=== PATIENT | female | born 1985 ===

== ENCOUNTER 2025-01-10 20:17 | Emergency (ER) | payer OTHER, SELFPAY ==
[2025-01-10 20:27] VITALS: BP 103/72
--- NOTE | 2025-01-10 21:01 | ED.GENMED ---
History of Present Illness
General
Chief Complaint: Abdominal Pain
Source: patient
Exam Limitations: none
Time Seen by Provider: 01/10/25 20:56
History of Present Illness
History of Present Illness:
See MDM
Past History
Past History
ED Past Medical History: None
ED Past Surgical History: Gynecological
Social History
Tobacco: Non-smoker
Alcohol: None
Phy Exam
Physical Exam
Physical Exam:
See MDM
Course
Orders/Labs/Results
Orders:
Orders
01/10/25 20:50
IV Insert/Care/Rem.- Treatment PRN
01/10/25 21:00
0.9% Sodium Chloride 1000 ml [Nss] 1,000 ml IV BOLUS
Ketorolac [Toradol] 30 mg IV NOW STA
Ondansetron Injectable [Zofran] 4 mg IV NOW STA
Test Result ONCE
01/10/25 21:01
CT Abd/pelvis W Iv Cont Urgent
Comment:
Reason For Exam: generalized abd pain
01/10/25 21:06
Complete Blood Count/With Diff Urgent
01/10/25 21:07
Comprehensive Metabolic Panel Urgent
HCG, Serum Qualitative Screen Urgent
Lipase Urgent
01/10/25 21:35
Morphine Sulfate 4 mg IV NOW STA
01/10/25 22:25
Urinalysis Reflex To Culture Urgent
Date Specimen was Collected: 01/10/25
Time Specimen was Collected: 22:24
01/10/25 22:58
Dicyclomine [Bentyl] 10 mg PO NOW STA
Abnormal Lab Results
01/10/25 01/10/25
21:06 21:07
Absolute Lymphs (auto) 0.9 L 10^3/uL
(1.2-3.4)
Neutrophils % 76.5 H %
(42.2-75.2)
Lymphocytes % 14.2 L %
(20.5-51.1)
BUN 4 L mg/dl
(7-17)
01/10/25 21:06
01/10/25 21:07
Vital Signs
Initial and Last Documented VS:
Initial Vital Signs
Temp Pulse BP Pulse Ox
99.8 F 120 103/72 98
01/10/25 20:27 01/10/25 20:27 01/10/25 20:27 01/10/25 20:27
Last Documented Vital Signs
Temp Pulse Resp BP Pulse Ox
98.1 F 85 16 101/77 99
01/10/25 22:21 01/10/25 22:21 01/10/25 22:21 01/10/25 22:21 01/10/25 22:21
MDM/Problems Addressed
Differential Diagnosis Includes:
HPI and MDM Narrative:
39-year-old female presenting for evaluation of 2 days of abdominal pain. This is associated with diarrhea. She is nauseous but no vomiting. No sick contacts. She denies fevers. On exam, she is uncomfortable and has generalized abdominal
tenderness throughout. She is not sure if it is worse with food intake. She has been unable to eat due to the discomfort. She does admit to a prior constipation but states this feels worse than any of her prior pain episodes.
Given her discomfort, will obtain CT scan. Will give Zofran and Toradol
Physical exam
General: Mildly uncomfortable
HEENT: protecting airway
Neck: appears supple
CV: No evidence of cyanosis
Resp: No accessory muscle use
Abd: Non-distended. Generalized abdominal tenderness throughout without localized rebound
Extremities: No deformities
Neuro: alert
Psych: Normal affect
Skin: Intact
Problems Addressed including Acute and Chronic Conditions affecting care:
1. Generalized abdominal pain
Acuity: acute
Prognosis: stable
Details: Given the general pain, will obtain CT scan. Will give Toradol
Updates
CT shows evidence of enteritis or possibly ileus. Will start Bentyl. He discussed the incidental finding of mild hepatomegaly and discussed return precautions
We also discussed the concern for enlarged uterus and outpatient follow-up
Differential Diagnosis (but not limited to): Early appendicitis, colitis, constipation
Testing considered: Right upper quadrant ultrasound but pain distribution appears to be more vague
Drug therapy (if applicable): OTC meds, please see d/c instruction regarding Rx drugs
Amount and/or Complexity of Data Reviewed
Clinical info obtained from: Patient
External data reviewed: N/A
Labs I independently reviewed (but not limited to): Electrolytes within normal limits. No leukocytosis, urinalysis negative
Radiology: The CT scan was personally and independently reviewed. In addition, official CT report reviewed.
Pulse Ox: not hypoxic
EKG independently reviewed: N/A
Hospice Manager: N/A
Critical Care: N/A
Risk of Complication:
Social Determinants of health: Good social support
Discussed with other providers: N/A
Escalation of Care includes Admit/Obs: After being observed in the Emergency Department, pt stable for discharge.
Occasional wrong word or 'sound a like' substitutions may have occurred due to the inherent limitations of voice recognition software. Read the chart carefully and recognize, using context, where substitutions have occurred.
*Critical Care Note
Total Time (30-74mins, 75-104mins- exclusive of procedures): Not Applicable
ED Attending Note
-
Portions of this chart may have been created with voice recognition software.� Occasional wrong word or��sound alike� substitutions may have occurred due to the inherent limitations of voice recognition software.
Discharge Plan
Departure
Patient Disposition: Home (Routine Discharge)
Date of Disposition: 01/10/25
Time of Disposition: 22:59
Patient with high blood pressure during this ER visit?: No
Discharge Problem:
Enteritis
Prescriptions:
New
dicyclomine 10 mg capsule
10 mg PO TID PRN (Reason: Belly pain) Qty: 14 0RF
No Action
Vitamin Tablet
1 tab PO DAILY
ibuprofen 600 MG tablet
600 mg PO Q4HPRN PRN (Reason: moderate pain/cramps) 0RF
cyclobenzaprine 10 mg tablet
10 mg PO TID PRN (Reason: muscle spasm) Qty: 20 0RF
ibuprofen 600 mg tablet
600 mg PO QID PRN (Reason: Pain) Qty: 30 0RF
Referrals:
Lew Spencer MD [Family Provider] -
Activity Restrictions/Additional Instructions:
Please return for any worsening symptoms.
You may return at any time if you have further concerns.
Please follow up with your doctor at the first available appointment, preferably this week.
Please discussed the incidental findings on the CT scan:
1. Mild fluid distention of ileal small bowel loops and mild circumferential wall thickening throughout jejunal small bowel loops. Diagnostic possibilities are (1) an acute enteritis or (2) an adynamic ileus.
2. Mild hepatomegaly.
3. Small amount of peritoneal fluid in the pelvic cul-de-sac.
4. Enlarged cervix (especially the posterior cervical wall) without convincing evidence for focal cervical mass.
Thank you for choosing [facility].
Interventions
Interventions:
*Risk Screen - Suicide Last Done: 01/10/25 21:43
*General Assessment Last Done: 01/10/25 21:43
*Neglect/Abuse Screening Last Done: 01/10/25 20:24
*ED- Fall Risk Assessment Last Done: 01/10/25 20:24
*ED COVID-19 Vaccine History Last Done: 01/10/25 20:22
AG-Zvqjnv-Miqtvaotow Assessment Last Done: 01/10/25 21:43
Discharge Date and Time
Print Language: [id number]
[2025-01-10 21:05] VITALS: BMI 24.2
[2025-01-10] MEDS: TORADOL 30 MG IV (21:07)
[2025-01-10] MEDS: ZOFRAN 4 MG IV (21:07)
[2025-01-10] MEDS: NSS 1000 IV (21:08)
[2025-01-10 21:17] LABS: % Basophils 0.2 % (0-2); % Immature Granulocytes 0.5 % (0-0.5); % Lymphocytes 14.2 % (20.5-51.1); % Monocytes 8.6 % (1.7-9.3); % Neutrophils 76.5 % (42.2-75.2); Absolute Lymphocytes 0.9 10^3/uL (1.2-3.4); Absolute Monocytes 0.5 10^3/uL (0.1-0.6); Absolute Neutrophils 4.7 10^3/uL (1.4-6.5); Hematocrit 39.5 % (37.0-47.0); Hemoglobin 13.4 g/dL (12.0-16.0); Mean Corp Hgb Conc. 33.9 g/dL (33.0-37.0); Mean Corpuscular Hgb 30.1 pg (27.0-31.0); Mean Corpuscular Volume 88.8 fL (81.0-99.0); Mean Platelet Volume 9.9 fL (7.4-10.4); Nucleated Red Blood Cells % 0 %; Platelet Count 248 10^3/uL (130-400); Red Blood Cell Count 4.45 10^6/uL (4.20-5.40); Red Cell Dist. Width 12.6 % (11.5-14.5); White Blood Cell Count 6.1 10^3/uL (4.8-10.8)
[2025-01-10 21:29] LABS: HCG, Serum Qualitative Screen Negative
[2025-01-10 21:31] LABS: ALT (SGPT) 14 U/L (0-35); AST (SGOT) 24 U/L (14-36); Albumin 4.4 g/dl (3.5-5.0); Alkaline Phosphatase 58 U/L (38-126); Blood Urea Nitrogen 4 mg/dl (7-17); Calcium 9.8 mg/dl (8.4-10.2); Carbon Dioxide 22 mmol/L (22-30); Chloride 104 mmol/L (98-107); Estimated Creatinine Clearance 92 ml/min; Glucose 99 mg/dl (70-99); Lipase 112 U/L (23-300); Potassium 3.7 mmol/L (3.5-5.1); Sodium 136 mmol/L (135-145); Total Bilirubin 0.7 mg/dl (0.2-1.3); Total Protein 7.3 g/dl (6.3-8.2); eGFR > 60.00
[2025-01-10] MEDS: MORPHINE SULFATE 4 MG IV (21:53)
[2025-01-10 22:21] VITALS: BP 101/77
[2025-01-10 22:35] LABS: Urine Albumin Negative (Neg - Trace); Urine Bilirubin Negative (Negative); Urine Character Clear (Clear); Urine Color Yellow; Urine Glucose Negative (Negative); Urine Ketone Negative (Negative); Urine Leukocyte Negative (Negative); Urine Nitrite Negative (Negative); Urine Occult Blood Negative (Negative); Urine Specific Gravity 1.005 (<1.030); Urine Urobilinogen Negative (Neg - 1+)
[2025-01-10] MEDS: BENTYL 10 MG PO (23:04)
== END 2025-01-10 23:25 | disposition home or self-care (01) ==
LOC: EMR 20:17
PROVIDERS: EMERGENCY PHYSICIAN Student in an Organized Health Care Education/Training Program; FAMILY PHYSICIAN Family Medicine
DX: K52.9 Noninfective gastroenteritis and colitis, unspecified (principal)
CPT/HCPCS: 99285; 96374; 96375 ×2; 96361; 74177; 80053; 81003; 83690; 84703; 85025; 93005; Q9967